=== PATIENT | male | born 1955 | race Caucasian/White ===

== ENCOUNTER 2022-08-30 19:05 | Emergency (ER) | payer OTHER, MEDICARE | END 2022-08-30 20:42 | disposition home or self-care (01) | LOC: ERS 19:05 | DX: S16.1XXA Strain of muscle, fascia and tendon at neck level, initial encounter (principal); V89.2XXA Person injured in unspecified motor-vehicle accident, traffic, initial encounter | CPT/HCPCS: 72125 ==